=== PATIENT | male | born 1955 | race Caucasian/White ===

== ENCOUNTER 2017-11-20 08:45 | Emergency (ER) | payer OTHER ==
[2017-11-20 09:04] VITALS: BP 132/81
--- NOTE | 2017-11-20 09:25 | EDM.PDOC ---
ED HPI GENERAL MEDICAL PROBLEM - General Chief Complaint: ENT Problem Stated Complaint: PAIN IN LIPS AT DENTIST ON MONDAY Time Seen by Provider: 11/20/17 09:10 Source of Information: Reports: Patient, Family History Limitations: Reports: No Limitations - History of Present Illness INITIAL COMMENTS - FREE TEXT/NARRATIVE: 62-year-old male with lip and perioral pain from a procedure he had 3 days ago where he had intense stretching and dilatation of the lips to get an impression of the lower gums. He now has cracking at the corners of the mouth with tenderness of the soft tissue and mucosa of the right cheek and perioral area. He's been taking Tylenol and ibuprofen but seems to be worsening. No fevers or chills, no significant swelling, no bleeding. Location: Reports: Face Severity: Mild Worsens with: Reports: Other (Movement and talking causes pain, he is sleeping fine), Movement Oral/Mouth Pain Score (Numeric/FACES): 8 - Related Data Allergies Allergy/AdvReac Type Severity Reaction Status Date / Time No Known Allergies Allergy Verified 03/15/15 08:44 Home Meds: Home Meds Aspirin [Ecotrin] 325 mg PO DAILY 08/01/13 [History] Carvedilol [Coreg] 6.25 mg PO BID 08/01/13 [History] Clopidogrel [Plavix] 75 mg PO DAILY 08/01/13 [History] atorvaSTATin [Lipitor] 40 mg PO BEDTIME 08/01/13 [History] Cyclobenzaprine [Flexeril] 10 mg PO TID 03/16/15 [History] Past Medical History - Past Health History Medical/Surgical History: Denies Medical/Surgical History - Infectious Disease History Infectious Disease History: Reports: Chicken Pox Social & Family History - Tobacco Use Smoking Status *Q: Current Every Day Smoker Years of Tobacco use: 30 Packs/Tins Daily: 0.5 - Caffeine Use Caffeine Use: Reports: Coffee - Recreational Drug Use Recreational Drug Use: No ED ROS ENT - Review of Systems Review Of Systems: See Below Constitutional: Denies: Fever, Chills Respiratory: Denies: Shortness of Breath Cardiovascular: Denies: Chest Pain GI/Abdominal: Denies: Abdominal Pain Skin: Denies: Erythema ED EXAM, ENT - Physical Exam Exam: See Below Exam Limited By: No Limitations General Appearance: Alert, No Apparent Distress Mouth/Throat: Other (Patient has small inflamed cracks at the corners of the mouth, with tenderness of the soft tissue of the lower lip and right cheek but no objective swelling or redness of the soft tissue) Course - Vital Signs Last Recorded V/S: Last Vital Signs Temp 96.5 F 11/20/17 09:13 Pulse 66 11/20/17 09:13 Resp 13 11/20/17 09:13 BP 132/81 11/20/17 09:13 Pulse Ox 99 11/20/17 09:13 - Re-Assessments/Exams Free Text/Narrative Re-Assessment/Exam: 11/20/17 09:23 He's trying a topical balm that was recommended by the dentist, will add triamcinolone 0.1% cream to the balm that he can use 2-3 times daily and I gave him 10 Vicodin to get through the next day or 2 until he can visit with the dentist. Departure - Departure Time of Disposition: 09:43 Disposition: Home, Self-Care 01 Condition: Good Clinical Impression: Contusion of face Qualifiers: Encounter type: initial encounter Qualified Code(s): S00.83XA - Contusion of other part of head, initial encounter - Discharge Information Instructions: Contusion, [id number] Referrals: PCP,None [Primary Care Provider] - Forms: ED Department Discharge Care Plan Goals: Continue with ibuprofen and add stronger pain medications over the next couple of days. Mix triamcinolone with the lip balm and use 2-3 times daily. Update the dentist in the next 48 hours on how you're doing.
== END 2017-11-20 09:44 | disposition home or self-care (01) ==
LOC: JP.ED 08:45
DX: S00.83XA Contusion of other part of head, initial encounter (principal); F17.210 Nicotine dependence, cigarettes, uncomplicated; Z79.899 Other long term (current) drug therapy; Z79.82 Long term (current) use of aspirin; X58.XXXA Exposure to other specified factors, initial encounter
CPT/HCPCS: 99283